=== PATIENT | male | born 1985 | race Caucasian/White ===

== ENCOUNTER 2022-08-30 09:35 | Emergency (ER) | payer OTHER, SELFPAY ==
[2022-08-30 09:52] VITALS: BP 140/81; PULSE 79; RESP 18; TEMP 36.3; O2SAT 98
[2022-08-30 09:54] VITALS: BP 140/81; PULSE 79; RESP 18; TEMP 36.3; O2SAT 98
--- NOTE | 2022-08-30 10:13 | ED.BACK ---
HPI - Back Pain/Injury General Chief Complaint: Back Pain/Injury Stated Complaint: Lower Back Pain Source: patient and RN notes reviewed History of Present Illness HPI Narrative: 37-year-old male presents to urgent care with complaints of left lower back pain/ left posterior hip. Patient states he woke up with this pain. 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 Denies any specific injury. denies any leg pain, numbness, tingling, fevers chills or dysuria. Patient has been taking ibuprofen at home with minimal relief. Some parts of this dictation were generated by voice recognition software and may contain typographical and/or grammatical inaccuracies. Related Data Allergies Allergy/AdvReac Type Severity Reaction Status Date / Time gabapentin Allergy Unknown unk Verified 08/30/22 09:54 [email or web address] Allergy Unknown Unknown Verified 08/30/22 09:54 Review of Systems Review of Systems: Pertinent positives and pertinent negatives per HPI. [facility] Family History Family History Father Family history of gout Depression Cerebrovascular accident Mother Hypertension Depression Sibling Depression Social History Social History (Updated 04/01/22 @ 15:39 by Carol Daugherty) Smoking status: Former smoker Smoking end date: 05/18/11 Alcohol intake: never Substance use: never Living arrangements: with family Occupation/Education: occupation Gender identity (if verbalized by the patient): Male Sexual Orientation (if Verbalized by the Patient): Straight or Heterosexual Spiritual care concerns: No Comments At the time of my signature, I reviewed and agree with the nursing past medical, surgical, social, and family history. There is no relevant family history pertinent to the patient complaint. Exam Narrative: GENERAL: This is a well-nourished, well-developed patient, in no apparent distress. HEAD: normocephalic, atraumatic. EYES: Sclera clear/white. Vision is grossly intact. EARS: External ears normal, auditory canals clear and without drainage. Hearing grossly intact. NOSE: External nose normal with no obvious nasal discharge, nares without redness, no rhinorrhea. THROAT: Mucous membranes moist, posterior pharynx clear. NECK: Neck supple, non-tender without lymphadenopathy, masses or thyromegaly. CARDIOVASCULAR: Regular rate RESPIRATORY: No respiratory distress SKIN: warm, intact with no suspicious lesions or rash, good texture and turgor. NEURO: awake, alert, and oriented to person, place and time. There were no obvious focal neurologic abnormalities. EXTREMITIES: No clubbing, cyanosis, or edema. No joint tenderness, effusion, or edema noted. BACK: Nontender without deformity or crepitance. No flank tenderness. Course Course Level of Care: Express Care Visit Vital Signs Vital signs: Vital Signs Temperature 97.3 F L 08/30/22 09:52 Pulse Rate 79 08/30/22 09:52 Respiratory Rate 18 08/30/22 09:52 Blood Pressure 140/81 08/30/22 09:52 Pulse Oximetry 98 08/30/22 09:52 Oxygen Delivery Room Air 08/30/22 09:52 Temperature 97.3 F L 08/30/22 09:54 Pulse Rate 79 08/30/22 09:54 Respiratory Rate 18 08/30/22 09:54 Blood Pressure 140/81 08/30/22 09:54 Pulse Oximetry 98 08/30/22 09:54 Oxygen Delivery Room Air 08/30/22 09:54 reviewed MDM - Back Pain/Injury MDM Narrative Medical decision making narrative: Take pain medications as directed. Take ibuprofen as directed to decrease inflammation and to help pain. Take cyclobenzaprine (muscle relaxer) as directed. Do not drink, drive, operate machinery, or do anything dangerous while taking this medication Exercise:Combine aerobic exercise, like walking or swimming, with specific exercises to keep the muscles in your back and abdomen strong and flexible. Proper Lifting:Be sure to lift heavy items with you
== END 2022-08-30 10:23 | disposition home or self-care (01) ==
PROVIDERS: Emergency Provider Nurse Practitioner Family; PCP Family Medicine
DX: S39.012A Strain of muscle, fascia and tendon of lower back, initial encounter (principal); X58.XXXA Exposure to other specified factors, initial encounter; Z87.891 Personal history of nicotine dependence; M19.90 Unspecified osteoarthritis, unspecified site
CPT/HCPCS: 99213; G0463

== ENCOUNTER 2023-05-12 11:15 | Outpatient (CLI) | payer OTHER, SELFPAY ==
[2023-05-12 12:08] LABS: Influenza A QL RT-PCR Negative (Negative); Influenza B QL RT-PCR Positive (Negative); RSV RNA, RT-PCR Negative (Negative); SARS-CoV-2 RNA PCR Negative (Negative)
== END 2023-05-12 11:16 | disposition home or self-care (01) ==
LOC: ANHLAB 11:16
PROVIDERS: PCP Family Medicine; Visit Provider Physician Assistant Medical
DX: J02.9 Acute pharyngitis, unspecified (principal); Z20.822 Contact with and (suspected) exposure to COVID-19
CPT/HCPCS: 87637

== ENCOUNTER 2023-10-26 09:11 | Outpatient (CLI) | payer OTHER, SELFPAY ==
[2023-10-26 09:43] LABS: Hematocrit 41.3 % (42.0-52.0); Hemoglobin 13.5 g/dL (14.0-18.0); Mean Corpuscular HGB Conc 32.7 g/dl (32-36); Mean Corpuscular Hemoglobin 30.5 pg (26-34); Mean Corpuscular Volume 93.2 fl (80-100); Mean Platelet Volume 9.3 fl (7.4-10.4); Platelet Count Result 240 k/mm3 (150-375); Red Blood Count 4.43 M/mm3 (4.6-6.20); Red Cell Distribution Width 13.2 % (11.5-14.5)
[2023-10-26 09:57] LABS: Alanine Aminotransferase 14 U/L (6-50); Albumin Level 4.3 g/dL (3.5-5.1); Alkaline Phosphatase 75 U/L (38-126); Anion Gap 4 mmol/L (4-12); Aspartate Amino Transferase 17 U/L (17-59); Bilirubin,Total 0.5 mg/dL (0.2-1.3); Blood Urea Nitrogen 13 mg/dL (9-20); Calcium 8.8 mg/dL (8.4-10.2); Carbon Dioxide 30 mmol/L (22-30); Chloride 105 mmol/L (98-107); Cholesterol 258 mg/dL (0-200); Estimated Glomerular Filt Rate > 60; Glucose 98 mg/dL (65-110); HDL Direct 37 mg/dL; Sodium 139 mmol/L (137-145); Triglycerides 218 mg/dL (<150)
[2023-10-26 10:07] LABS: LDL Cholesterol Direct 178 mg/dL
== END 2023-10-26 09:12 | disposition home or self-care (01) ==
LOC: ANHLAB 09:12
PROVIDERS: PCP Family Medicine; Visit Provider Family Medicine
DX: Z00.00 Encounter for general adult medical examination without abnormal findings (principal)
CPT/HCPCS: 36415; 80053; 80061; 84443; 85027

== ENCOUNTER 2023-12-17 08:47 | Emergency (ER) | payer OTHER, SELFPAY ==
--- NOTE | ~2023-12-17 | CT_ITS ---
CT abdomen pelvis w con Ordering provider: Jelly Diana PA-C History: 38 years Male with . RLQ abdominal pain . Comparison: None. Technique: CT abdomen and pelvis with IV and without oral contrast. Automated exposure control and it erative reconstruction technique were employed. The dose-length product was 1673.68 mGy-cm. 100 mL Om nipaque 350 was given IV. Findings: VISUALIZED LOWER CHEST: Normal. UPPER ABDOMINAL ORGANS: Liver: Normal. Gallbladder: Normal. Spleen: Normal. Stomach/duodenum: Normal. Pancreas: Normal. Adrenals: Normal. Kidneys: Tiny stone in the left kidney lower pole. PELVIC ORGANS: The bladder is underfilled. BOWEL AND MESENTERY: Colon: No evidence of diverticulitis. Fecal material is seen in the right side of the colon. Normal a ppendix. Small Bowel: Normal. No obstruction. Peritoneum/mesentery: No free air or free fluid. No mesenteric lymphadenopathy. RETROPERITONEUM: Normal aorta. No retroperitoneal lymphadenopathy. Small para-aortic lymph nodes. MUSCULOSKELETAL: Superficial soft tissues: Left inguinal fat containing hernia. Fat-containing umbilical hernia. The s uperficial soft tissues are normal. Bones: Normal spine. IMPRESSION: 1. No acute abdominal process with no evidence of appendicitis, diverticulitis or intestinal obstruc tion. 2. Tiny left kidney lower pole stone. Reviewed, dictated and finalized at location A. IMPRESSION: 1. No acute abdominal process with no evidence of appendicitis, diverticulitis or intestinal obstruction. 2. Tiny left kidney lower pole stone.
[2023-12-17 08:55] VITALS: BP 166/112; PULSE 72; RESP 20; TEMP 36.7; O2SAT 100
[2023-12-17 09:02] VITALS: BP 143/102; PULSE 70; RESP 18; O2SAT 100
--- NOTE | 2023-12-17 09:05 | ED.ABDPAIN ---
HPI - Abdominal Pain General Chief Complaint: Abdominal Pain Stated Complaint: ABD PAIN N/V Time Seen by Provider: 12/17/23 09:00 History of Present Illness HPI narrative: 38 Year old male with reported history of a TBI presents to the emergency department for right lower quadrant abdominal pain intermittently for several days. Patient states the pain is located in his periumbilical region and his right lower quadrant. States it is intermittent but cannot identify any aggravating or alleviating factors. States today while at work an episode of vomiting which prompted him to go to urgent care. He was sent to the ED from urgent care for further evaluation. He states he has not taken anything for his pain denies any current nausea. Last bowel movement was yesterday. He does state he has been constipated recently. No prior abdominal surgeries. Denies dysuria or hematuria, urinary frequency urgency, diarrhea. Related Data Allergies Allergy/AdvReac Type Severity Reaction Status Date / Time gabapentin Allergy Unknown unk Verified 12/17/23 09:03 [email or web address] Allergy Unknown Unknown Verified 12/17/23 09:03 Review of Systems Review of Systems: All systems reviewed & are unremarkable except as noted in HPI and below PMFSH Past Medical History Medical History Anxiety Depression Family History Family History Father Family history of gout Depression Cerebrovascular accident Mother Hypertension Depression Sibling Depression Social History Social History Smoking status: Former smoker Smoking end date: 05/18/11 Alcohol intake: never Substance use: never Living arrangements: with family Occupation/Education: occupation Gender identity (if verbalized by the patient): Male Sexual Orientation (if Verbalized by the Patient): Straight or Heterosexual Spiritual care concerns: No Exam Narrative: GENERAL: Well-appearing, well-nourished, and in no acute distress. HEAD: Normocephalic, atraumatic. EYES: PERRLA and EOMI. ENT: Nares clear, no rhinorrhea or epistaxis. Mucous membranes moist. NECK: Supple. CHEST: Clear to auscultation. No respiratory distress. HEART: Regular rate and rhythm. No murmur heard. Normal peripheral pulses. ABDOMEN: Normoactive bowel sounds. Abdomen soft with mild tenderness in the right lower quadrant. No rebound, guarding or rigidity. No CVA tenderness. EXTREMITIES: Normal range of motion. No edema. SKIN: Warm, dry, no rash. NEURO: No focal deficits. Alert and oriented x3 Course Vital Signs Vital signs: Vital Signs Temperature 98.1 F 12/17/23 08:55 Pulse Rate 72 12/17/23 08:55 Respiratory Rate 20 12/17/23 08:55 Blood Pressure 166/112 H 12/17/23 08:55 Pulse Oximetry 100 12/17/23 08:55 Temperature 98.1 F 12/17/23 08:55 Pulse Rate 70 12/17/23 09:02 Respiratory Rate 18 12/17/23 09:02 Blood Pressure 143/102 H 12/17/23 09:02 Pulse Oximetry 100 12/17/23 09:02 MDM - Abdominal Pain MDM Narrative Medical decision making narrative: 38-year-old male presents emergency department for intermittent periumbilical and right lower quadrant abdominal pain for the past couple of days. Triage vital significant for hypertension. He is afebrile and nontoxic appearing. Exam is significant for mild tenderness in the right lower quadrant. Will obtain lab work and CT abdomen pelvis. I did offer pain medication, however patient politely declined. He is resting comfortably in the exam bed. CBC with mild leukocytosis of 11.6, no bandemia. Hemoglobin is 13.5 with normal MCV, this is consistent with prior labs. Chemistries are unremarkable. UA without UTI, elevated specific gravity. Lipase is normal. CT abdomen pelvis shows no acute findings other than a tiny stone in the lower pole of t
[2023-12-17 09:07] LABS: Basophils Absolute Auto 0.1 K/mm3 (0.0-0.1); Basophils Percent Auto 0.5 % (0.2-1.2); Eosinophils Absolute Auto 0.2 K/mm3 (0-0.3); Eosinophils Percent Auto 1.6 % (0-4.4); Hematocrit 40.9 % (42.0-52.0); Hemoglobin 13.5 g/dL (14.0-18.0); Immature Granulocyte Absolute 0.04 K/mm3 (0.00-0.031); Immature Granulocyte Percent A 0.3 % (0-0.5); Lymphocytes Absolute Auto 3.31 K/mm3 (0.9-3.2); Lymphocytes Percent Auto 28.6 % (18.3-44.2); Mean Platelet Volume 9.5 fl (7.4-10.4); Monocytes Absolute Auto 0.9 K/mm3 (0.1-0.6); Monocytes Percent Auto 7.3 % (2.6-8.5); Neutrophils Absolute Auto 7.2 K/mm3 (1.3-6.7); Neutrophils Percent Auto 61.7 % (45.5-73.1); Platelet Count Result 269 k/mm3 (150-375); Red Blood Count 4.35 M/mm3 (4.6-6.20); Red Cell Distribution Width 13.2 % (11.5-14.5); White Blood Count 11.6 K/mm3 (4.5-10.0)
[2023-12-17 09:18] LABS: Alanine Aminotransferase 16 U/L (6-50); Albumin Level 4.7 g/dL (3.5-5.1); Alkaline Phosphatase 81 U/L (38-126); Anion Gap 10 mmol/L (4-12); Aspartate Amino Transferase 18 U/L (17-59); Bilirubin,Total 0.4 mg/dL (0.2-1.3); Blood Urea Nitrogen 19 mg/dL (9-20); Calcium 9.2 mg/dL (8.4-10.2); Carbon Dioxide 30 mmol/L (22-30); Chloride 99 mmol/L (98-107); Estimated CRCL calculation 129 ml/min; Estimated Glomerular Filt Rate > 60; Glucose 94 mg/dL (65-110); Lipase 101 U/L (23-300); Potassium 3.9 mmol/L (3.4-5.0); Sodium 139 mmol/L (137-145)
[2023-12-17 09:25] LABS: Add Urine Microscopic? NO; Appearance Urine Clear (Clear); Bilirubin Urine Negative (Negative); Blood Urine Negative (Negative); Color Urine Yellow (Yellow); Glucose Urine UA Negative (Negative); Ketones Urine Negative (Negative); Leukocyte Esterase Ur Negative LEU/UL (Negative); Nitrate Urine Negative (Negative); Protein Urine Negative (Negative); Specific Grav Ur 1.038 (1.001-1.035)
[2023-12-17] MEDS: ONDANSETRON INJ 4 MG/2 ML VIAL IV PUSH (10:04)
[2023-12-17] MEDS: SODIUM CHLORIDE 0.9% IV 1,000 ML 999 ML IV CONT (10:04)
[2023-12-17 10:07] VITALS: BP 126/88; PULSE 66; RESP 17; O2SAT 98
== END 2023-12-17 10:40 | disposition home or self-care (01) ==
PROVIDERS: Emergency Medicine; Emergency Provider Physician Assistant; PCP Family Medicine
DX: D64.9 Anemia, unspecified (principal); R11.2 Nausea with vomiting, unspecified; R10.31 Right lower quadrant pain; Z87.891 Personal history of nicotine dependence
CPT/HCPCS: 36415; 74177; 80053; 81003; 83690; 85025; 96374; 99284; J2405; J7030; Q9967

== ENCOUNTER 2024-09-29 07:39 | Outpatient (CLI) | payer OTHER, SELFPAY ==
--- OUTSIDE RECORDS SUMMARY | 2024-09-29 07:43 | XMS_ITS | Clinical Summary ---
Author Organization [facility] Address [address] [place] [address] Care Team Providers Care Combo Welder Name Role Phone Unavailable Primary Care Provider Unavailabl e Source Comments [facility],non-owned Affiliates and Associated Physician Practices is amultiple site organization consisting of ambulatory clinics and hospital sitesin [place], [place], [place] and [place]. This disclosure is being madepursuant to the Care Everywhere program and may not contain all information available regarding this patient. Last updated 18.[facility] Allergies No known active allergies Medications * Be aware that medications may not be up to date on this document. Alwaysverify current medications with the patient. ibuprofen (MOTRIN) 600 MG tablet Take 1 (one) tablet by mouth every 6 hours as needed for Pain 15 tablet 09/13/2021 Active Immunizations Immunization Administration Dates Next Due TDAP (7yrs+) 09/13/2021 Social History Tobacco Use Types Packs/Day Years Used Date Smoking Tobacco: Never Assessed Sex and Gender Information Value Date Recorded Sex Assigned at Not on file Legal Sex Male 1:40 AM CDT Gender Identity Not on file Sexual Orientation Not on file Last Filed Vital Signs Vital Sign Reading Time Taken Comments Blood Pressure 150/95 09/23/2021 4:54 AM CDT Pulse 82 09/23/2021 4:54 AM CDT Temperature 36.7 C (98.1 F) 09/23/2021 4:54 AM CDT Respiratory Rate 16 09/23/2021 4:54 AM CDT Oxygen Saturation 100% 09/23/2021 4:54 AM CDT Inhaled Oxygen Concentration - - Weight 108.9 kg (240 lb) 09/23/2021 4:54 AM CDT Height 180.3 cm (5' 11) 09/23/2021 4:54 AM CDT Body Mass Index 33.47 09/23/2021 4:54 AM CDT Plan of Treatment Health Maintenance Due Date Last Done Comments HIV SCREENING 2002 HEPATITIS C SCREENING 03/16/2005 HEPATITIS B VACCINE (1 of 3 - 19+ 3-dose series) 2006 COVID-19 VACCINE (3 - 2023-2 5 season) 2024 12/15/2020, 11/24/2020 DEPRESSION SCREENING 05/18/2024 INFLUENZA VACCINE (Season Ended) 2025 03/12/2012, 03/05/2011, 03/12/2009 DTAP/TDAP/TD VACCINES (2 - T d or Tdap) 09/14/2031 09/13/2021 ZOSTER VACCINE (1 of 2) 2037 HIB VACCINE Aged Out No longer eligi ble based on patient's age to complete this topic HPV VACCINE Aged Out No longer eligi ble based on patient's age to complete this topic MENINGOCOCCAL (Group B) VACCINE SHARED DECISION-MAKING Aged Out No longer eligible based on patient's age to complete this topic MENINGOCOCCAL GROUPS A/C/Y/W VACCINE Aged Out No longer eligible b ased on patient's age to complete this topic PNEUMOCOCCAL VACCINE Aged Out No long er eligible based on patient's age to complete this topic Insurance
--- NOTE | 2024-10-24 21:54 | WPDSLEEPSTUD ---
Sleep Study Date of Study: 09/29/24 Ordering Provider: Kalyani Hernández PA-C Interpreting Physician: Yael Wood MD Sleep Study Type: Split Polysomnogram Height: 1.83 m Weight: 136.078 kg Body Mass Index: 40.6 Neck Circumference (inches): 19 [place]: 17 Reason for Sleep Study Hypersomnolence, known obstructive sleep apnea currently not on treatment, always tired and can fall asleep anywhere Sleep History Margarito Mackay is a 39-year-old man with a history of obstructive sleep apnea, used CPAP for a while 12 years ago, when he moved he did not resume treatment. He has anxiety/depression and stomach problems, takes sertraline and esomeprazole. He occasionally awakens from sleep feeling short of breath. He occasionally wakes at night with heartburn, belching or coughing.??He constantly snores loudly enough that others complain. He never has trouble sleeping when he has a cold. He occasionally wakes up gasping for breath during the night. He never has breathing problems at night. He never sweats excessively at night. He never notices his heart pounding or beating irregularly during the night. He frequently falls asleep during the day. He frequently falls asleep involuntarily, rarely falls asleep while driving. He never experiences loss of muscle tone with strong emotion. He rarely has daytime difficulty at work due to excessive sleepiness. He never feels paralyzed on waking or falling asleep. He never experiences vivid dreams upon waking or falling asleep. He never feels afraid of going to sleep. He never has nightmares. He rarely recalls his dreams. He rarely has thoughts racing through his mind. He occasionally feels sad or depressed. He frequently feels anxiety. He occasionally notices parts of his body jerk. He rarely kicks during the night. He never feels crawling or aching feelings in his legs. He rarely feels leg pain at night. He never has morning jaw pain, occasionally grinds his teeth at night. He occasionally feels bothered by pain during the day, rarely awakened by pain during the night. He rarely wakes up feeling stiff in the morning, and he never wakes feeling sore or achy. He rarely awakens with pain in his neck, spine, or joints. Normal bedtime is 8:00 a.m., falling asleep quickly, waking between 3 and 4 times while sleeping for no clear reason, will lie there and try to return to sleep. His wake time is 1:00 p.m.. On weekends he reverts to a normal schedule, going to bed at 10:00 p.m. and waking around 4:00 a.m.. He estimates getting between 4 and 5 hours of sleep most nights. he works the midnight shift in [email or web address]. He takes naps in the day, but never feels refreshed after 10-15 minutes nap. He is usually drowsy for 3 hours after waking. He feels better in the afternoon compared to other times of day. Habits:??Tobacco: Former smoker, quit 2011 Caffeine: 3 sodas per day Alcohol: none mentioned Recreational substances: none mentioned FOR[facility]LY [facility] Past Medical History Medical History (Updated 10/24/24 @ 22:08 by Yael Wood MD) Obstructive sleep apnea Anxiety Depression Family History Family History Father Family history of gout Depression Cerebrovascular accident Mother Hypertension Depression Sibling Depression Social History Social History Smoking status: Former smoker Smoking end date: 05/18/11 Alcohol intake: never Substance use: never Living arrangements: with family Occupation/Education: occupation Gender identity (if verbalized by the patient): Male Sexual Orientation (if Verbalized by the Patient): Straight or Heterosexual Spiritual care concerns: No Medications Home Medications ?Medication ?Instructions ?Recorded ?Confirmed ?Type methylprednisolone 4 mg tablets in See Rx Instructions PO PER PKG DIR 08/26/24 08/26/24 Rx a dose pack (Medrol (Shai)) #21 ea sertraline 100 mg tablet 100 mg PO DAILY #30 tabs 08/26/24 08/26/24 Rx Sleep Procedure A split night polysomnogram using the [employer] multi-channel system recorded the standard physiologic parameters including EEG, EOG, submentalis EMG, anterior tibialis EMG, EKG, body position, nasal and oral airflow using nasal pressure sensor and thermistor. Respiratory parameters of chest and abdominal movements were recorded with Respiratory Inductance Plethysmography belts. Oxygen saturation was recorded by pulse oximetry. Video monitoring was also performed. Sleep stages, periodic limb movements, and EEG arousals were scored in 30 second epochs according to the criteria of the AASM Scoring Manual. The Apnea-Hypopnea Index was calculated using CMS guidelines for definition of hypopnea while scoring respiratory events. 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 There was no mention of using a sleep aid. After the baseline portion the patient met criteria for a titration with an AHI of 52.6 and desaturation to 74%. He used a medium [employer] DreamWear under the nose nasal mask with heated humidity, was titrated from CPAP 5 cm to CPAP 7, CPAP 9, CPAP 11 then reduce to CPAP 10 due to emerging central apneas. This dropped to 10 cm was ideal, and at that pressure, he spent 144 minutes in bed, 12.5 minutes awake, 102 minutes in non-REM and 29.5 minutes in REM. The sleep efficiency was 91.3%. The residual apnea-hypopnea index was 0.9 and the lowest saturation was 88%. He had a small amount of supine REM and this setting, the remainder of REM was in the left lateral position. Sleep Architecture During the diagnostic portion of the study, the total recording time was 154.8 minutes. The total sleep time was 137.0 minutes. Sleep latency was 3.3 minutes. REM latency was 122.0 minutes. Sleep Efficiency was 88.5%. The patient had 9 awakenings for an awakening index of 3.9. Wake after sleep onset time was 14.5 minutes. The patient spent 11.0 minutes, 8.0% of total sleep time in Stage N1. The patient spent 54.0 minutes, 39.4% in Stage N2. The patient spent 59.5 minutes, 43.4% in Stage N3. The patient spent 12.5 minutes, 9.1% in Stage REM sleep. At 11:31:49 PM the patient was placed on PAP treatment. During the treatment portion of the study, the total recording time was 388.8 minutes. The total sleep time was 345.0 minutes. Sleep latency was 9.0 minutes. REM latency was 46.0 minutes. Sleep Efficiency was 88.7%. Wake after Sleep Onset time was 34.5 minutes. The patient spent 54.5 minutes, 15.8% of total sleep time in Stage N1. The patient spent 190.0 minutes, 55.1% in Stage N2. The patient spent 3.5 minutes, 1.0% in Stage N3. The patient spent 97.0 minutes, 28.1% in Stage REM. Respiratory Analysis During the diagnostic portion of the study, the patient had 108 hypopneas, 8 obstructive apneas, no mixed apneas, and 4 central apneas for an overall Apnea Hypopnea Index of 52.6 events per hour. The REM Apnea Hypopnea Index was 86.4. The NREM Apnea Hypopnea Index was 49.2. The patient had a Central Apnea Hypopnea Index of 1.8. There were no Respiratory Effort Related Arousals. The Respiratory Disturbance Index is 54.7 events per hour. There was no evidence of Wilson-Cooper Respirations. During the treatment portion of the study, the patient had 31 hypopneas, 6 obstructive apneas, 6 mixed apneas, and 42 central apneas for an overall Apnea Hypopnea Index of 14.8 events per hour. The REM Apnea Hypopnea Index was 6.2. The NREM Apnea Hypopnea Index was 18.1. The patient had a Central Apnea Hypopnea Index of 7.3. There were no Respiratory Effort Related Arousals. The Respiratory Disturbance Index is 15.3 events per hour. There was no evidence of Wilson-Cooper Respirations. Arousals During the diagnostic portion of the study, there were a total of 34 arousals for an arousal index of 14.9. There were 12 respiratory arousals for an index of 5.3. There were no periodic or isolated limb movement arousals. There were 22 spontaneous arousals for an index of 9.6. During the treatment portion of the study, there were a total of 98 arousals for an index of 17.0. There were 11 respiratory arousals for an index of 1.9. There were 6 periodic limb movement arousals for an index of 1.0. There were 6 isolated limb movement arousals for an index of 1.0. There were 75 spontaneous arousals for an index of 13.0. Periodic Limb Movements During the diagnostic portion of the study, the patient had no isolated limb movements or periodic limb movements. During the treatment portion of the study, the patient had 50 isolated limb movements with an index of 8.7. The patient had 80 periodic limb movements with an index of 13.9. The patient had a total of 130 limb movements with a total limb movement index of 22.6. Oximetry Data During the diagnostic portion of the study, the patient had an average oxygen saturation of 93.7% in wake with a minimum oxygen saturation of 77% and a maximum oxygen saturation of 98%. The patient had an average oxygen saturation of 91.4% in sleep with a minimum oxygen saturation of 74% and a maximum oxygen saturation of 98%. The patient had 155 oxygen desaturations resulting in an Oxygen Desaturation Index of 67.9. The patient spent 17.9 minutes, 12.3% of total sleep time with an oxygen saturation less than 88%. During the treatment portion of the study, the patient had an average oxygen saturation of 95.3% in wake with a minimum oxygen saturation of 87% and a maximum oxygen saturation of 99%. The patient had an average oxygen saturation of 92.9% in sleep with a minimum oxygen saturation of 86% and a maximum oxygen saturation of 98%. The patient had 93 oxygen desaturations resulting in an Oxygen Desaturation Index of 16.2. The patient spent 4.4 minutes, 1.1% of total sleep time with an oxygen saturation less than 88%. Snoring Profile Snoring was mild to moderate, intermittent, limited during the titration. Cardiac Profile During the diagnostic portion of the study, the EKG showed normal sinus rhythm. The average pulse rate was 66 bpm. The minimum pulse rate was 53 bpm. The maximum pulse rate was 91 bpm. No arrhythmias noted. During the treatment portion of the study, the EKG showed normal sinus rhythm. The average pulse rate was 59.5 bpm. The minimum pulse rate was 47 bpm. The maximum pulse rate was 104 bpm. No arrhythmias noted. EEG Profile Unremarkable, no evidence of seizures. Assessment and Plan Assessment and Plan (1) Obstructive sleep apnea: Code(s): G47.33 - Obstructive sleep apnea (adult) (pediatric) Status: Acute Assessment and Plan: This split night sleep study on 09/29/2024 shows extremely severe obstructive sleep apnea, the apnea-hypopnea index on the baseline is 52.6 with desaturation to 74% and snoring, successfully treated using a [employer] DreamWear under the nose nasal mask during the titration with an optimal pressure of CPAP 10 cm. At this pressure, he spent 144 minutes in bed, 12.5 minutes awake, 102 minutes in non-REM and 29.5 minutes in REM. The sleep efficiency was 91.3%. The residual apnea-hypopnea index was 0.9 and the lowest saturation was 88%. He had a small amount of supine REM and this setting, the remainder of REM was in the left lateral position. The patient should be prescribed this [employer] equipment as well as tubing, filters and reservoir. This should be used with all episodes of sleep. Compliance should be reviewed within 31-90 days of starting therapy for usage greater than 4 hours per night greater than 70% of the nights. The patient should be asked about symptoms such as excessive daytime sleepiness, quality of sleep, decreased nocturia, increased mental functioning such as memory, mood, and concentration. He had treatment emergent central apneas, the central apnea index on baseline is 1.8, and during the titration is 7.3. These are expected to improve after 1-2 months of regular therapy. BMI is 40.7. Weight management is advised. Clinical data suggests that weight loss of 10% can reduce the severity of respiratory events and snoring and improve AHI by as much as 25%. Shift work sleep disorder may be present. According to his sleep survey, he is not allowing himself 7 hours to sleep. Sometimes it is more difficult to sleep during the daytime. Switching back to a completely regular schedule on his off days is not expected to work. Sleep hygiene advice for shift workers When possible, maximize regularity in activity and sleep schedule Regularity in the timing of sleep, food intake, and social activity helps to stabilize the biological clock. Minimizing discrepancies in sleep timing between on-shift and off-shift periods may help you adapt to a fixed-shift schedule and may also help you adapt to each shift type in a rotating-shift schedule (depending on rotation speed and direction). Create a sleep-friendly bedroom environment Make sure that your bed is comfortable and that your bedroom is dark, quiet, and cool (around 65?F or 18?C). Blackout shades may be particularly important to block sunlight during daytime sleep. Creating constant background noise in the sleep environment with a fan or humidifier, for example, will eliminate unexpected sounds that would otherwise wake you up. Limit exposure to bright light before daytime sleep Exposure to bright light (eg, sunlight during the morning commute home following a manager shift) can be alerting and may also set your biological clock to a time that interferes with daytime sleep. Make the last hour before bed a wind-down time Engage in relaxing and pleasant activities, dim or block light in the room, and have a light snack. Do not use alcohol to help you sleep and do not consume alcohol too close to bedtime Although alcohol may help you to fall asleep more easily, it disrupts your sleep during the night by causing frequent awakenings. One drink of alcohol should not be consumed within three hours of bedtime. Smoking and other drugs will disrupt your sleep If you smoke, do not smoke too close to bedtime or if you wake up during the intended sleep period. Most drugs of abuse can disrupt sleep. Avoid caffeinated products within six hours of bedtime In addition to coffee, these may include tea, chocolate, and many sodas. Exercise regularly, but avoid activities that raise body temperature close to bedtime Regular exercise can improve sleep quality, but exercising or having a warm bath too close to bedtime can disrupt your ability to fall asleep. Warm baths should be avoided within 1.5 hours of bedtime. Avoid consuming more than 8 to 10 ounces of liquids close to bedtime A full or semi-full bladder can contribute to awakenings. Restrict liquids close to bedtime and empty your bladder just before going to bed. Data The data obtained during this sleep study is adequate for interpretation. Certification This sleep study has been reviewed by a board certified sleep medicine physician.
[2024-10-24 22:26] VITALS: BMI 40.6
== END 2024-09-30 06:42 | disposition home or self-care (01) ==
LOC: ANHCSM 07:41
PROVIDERS: PCP Family Medicine; Visit Provider Student in an Organized Health Care Education/Training Program
DX: G47.33 Obstructive sleep apnea (adult) (pediatric) (principal); G47.19 Other hypersomnia
CPT/HCPCS: 95811